=== PATIENT | female | born 2000 | race Caucasian/White ===

== ENCOUNTER 2019-01-04 07:56 | Emergency (ER) | payer OTHER ==
[2019-01-04 08:04] VITALS: BP 115/82
[2019-01-04] MEDS ORDERED: ALBUTEROL NEB 2.5 MG/3 ML INH STA (08:27)
--- NOTE | 2019-01-04 08:43 | ED Physician Documentation ---
PD HPI URI - Stated complaint Stated Complaint: SOA - Chief complaint Chief Complaint: Resp - History obtained from History obtained from: Patient, Family - History of Present Illness Timing - onset: How many days ago Timing duration: Days (3) Timing details: Gradual onset Pain level max: 0 Pain level now: 0 Associated symptoms: Nasal congestion, Rhinorrhea, Dry cough, Dyspnea. No: Fever, Chills, Sore throat, NVD Contributing factors: Sick contact Improves by: Rest Worsened by: Activity, Breathing Similar symptoms before: Has not had sx before Recently seen: Not recently seen Review of Systems Constitutional: denies: Fever, Chills Respiratory: reports: Dyspnea, Cough, Wheezing GI: denies: Nausea, Vomiting, Diarrhea Skin: denies: Rash Musculoskeletal: denies: Neck pain, Back pain Neurologic: denies: Headache PD PAST MEDICAL HISTORY - Past Medical History Past Medical History: Yes Psych: Bipolar disorder - Past Surgical History Past Surgical History: No - Present Medications Home Medications: Ambulatory Orders Medication Instructions Recorded Confirmed Albuterol Sulf [Ventolin Hfa 1 - 2 puffs INH Q4HR PRN #1 inhaler 01/04/19 Inhaler] Benzonatate [Tessalon Perle] 100 - 200 mg PO TID PRN #30 capsule 01/04/19 Methylphenidate HCl [Concerta] 27 mg PO 01/04/19 Venlafaxine ER [Effexor ER] 150 mg PO DAILY 01/04/19 01/04/19 - Allergies Allergies/Adverse Reactions: Allergies Allergy/AdvReac Type Severity Reaction Status Date / Time No Known Drug Allergies Allergy Verified 01/04/19 08:04 - Social History Does the pt smoke?: No Smoking Status: Never smoker Does the pt drink ETOH?: Yes Does the pt have substance abuse?: Yes Substance Use and Type: Marijuana - Immunizations Immunizations are current?: Yes PD ED PE NORMAL - Vitals Vital signs reviewed: Yes - General General: Alert and oriented X 3, No acute distress, Well developed/nourished - HEENT HEENT: PERRL, Ears normal, Moist mucous membranes, Pharynx benign - Neck Neck: Supple, no meningeal sign - Cardiac Cardiac: RRR - Respiratory Respiratory: No respiratory distress, Other (Diminished breath sounds and wheezing bilaterally) - Abdomen Abdomen: Soft, Non tender, Non distended - Derm Derm: Warm and dry, No rash - Neuro Neuro: Alert and oriented X 3 - Psych Psych: Normal mood, Normal affect Results - Vitals Vitals: Vital Signs - 24 hr 01/04/19 08:01 Temperature 36.6 C Heart Rate 102 H Respiratory 20 Rate Blood Pressure 115/82 H O2 Saturation 99 Oxygen O2 Source Room air PD MEDICAL DECISION MAKING - ED course Complexity details: re-evaluated patient, considered differential, d/w patient ED course: 18-year-old female with a viral upper respiratory infection complicated by wheezing. Given albuterol treatments here. Feels better. She does smoke cigarettes and marijuana. Will prescribe an inhaler for home and follow-up with her doctor. No evidence of pneumonia. No hypoxia. No respiratory distress. Patient counseled regarding signs and symptoms for which I believe and urgent re-evaluation would be necessary. Patient with good understanding of and agreement to plan and is comfortable going home at this time This document was made in part using voice recognition software. While efforts are made to proofread this document, sound alike and grammatical errors may occur. Departure - Departure Disposition: 01 Home, Self Care Clinical Impression: Viral upper respiratory infection Condition: Good Instructions: ED URI Viral W Wheezing Follow-Up: Your,doctor in 1 week [Other] Prescriptions: Albuterol Sulf [Ventolin Hfa Inhaler] 1 - 2 puffs INH Q4HR PRN #1 inhaler PRN Reason: Shortness Of Air/Wheezing Benzonatate [Tessalon Perle] 100 - 200 mg PO TID PRN #30 capsule PRN Reason: Cough Comments: Use the medications as prescribed. Return if you worsen. Follow-up with your doctor for further care.
== END 2019-01-04 09:00 | disposition home or self-care (01) ==
LOC: ED 07:56
DX: J06.9 Acute upper respiratory infection, unspecified (principal); F17.210 Nicotine dependence, cigarettes, uncomplicated; F12.10 Cannabis abuse, uncomplicated
CPT/HCPCS: 94640; 94664; 99283

== ENCOUNTER 2019-06-29 10:36 | Emergency (ER) | payer OTHER ==
[2019-06-29 10:49] VITALS: BP 123/66
--- NOTE | 2019-06-29 12:09 | ED Physician Documentation ---
PD HPI OPHTHO - Stated complaint Stated Complaint: RT EYE PX - Chief complaint Chief Complaint: Heent - History obtained from History obtained from: Patient (Starting last night she has had an itchy sensation with watery and sometimes greenish discharge from the right eye. No foreign body sensation. She does not wear contacts. Vision is unaffected.) Review of Systems Constitutional: reports: Reviewed and negative Nose: reports: Reviewed and negative Throat: reports: Reviewed and negative Cardiac: reports: Reviewed and negative PD PAST MEDICAL HISTORY - Past Medical History Psych: Bipolar disorder - Past Surgical History Past Surgical History: No - Present Medications Home Medications: Ambulatory Orders Medication Instructions Recorded Confirmed Albuterol Sulf [Ventolin Hfa 1 - 2 puffs INH Q4HR PRN #1 inhaler 01/04/19 Inhaler] Benzonatate [Tessalon Perle] 100 - 200 mg PO TID PRN #30 capsule 01/04/19 Methylphenidate HCl [Concerta] 27 mg PO 01/04/19 Venlafaxine ER [Effexor ER] 150 mg PO DAILY 01/04/19 01/04/19 Erythromycin Base [Erythromycin 1 appful OP 5XD 7 Days #1 oint...g. 06/29/19 Ophthalmic Ointment] - Allergies Allergies/Adverse Reactions: Allergies Allergy/AdvReac Type Severity Reaction Status Date / Time No Known Drug Allergies Allergy Verified 06/29/19 10:46 - Social History Does the pt smoke?: No Smoking Status: Never smoker Does the pt drink ETOH?: Yes Does the pt have substance abuse?: Yes - Immunizations Immunizations are current?: Yes PD ED PE NORMAL - Vitals Vital signs reviewed: Yes - General General: Alert and oriented X 3, No acute distress - HEENT HEENT: PERRL (Right eye with kind of a classic nonspecific conjunctivitis sparing the limbus. Soft lobes. No fluorescein uptake.) - Neuro Neuro: Alert and oriented X 3, Normal speech Results - Vitals Vitals: Vital Signs - 24 hr 06/29/19 10:47 Temperature 36.8 C Heart Rate 87 Respiratory 18 Rate Blood Pressure 123/66 O2 Saturation 97 Oxygen O2 Source Room air Departure - Departure Disposition: 01 Home, Self Care Clinical Impression: Acute conjunctivitis, right eye Qualifiers: Acute conjunctivitis type: unspecified Qualified Code(s): H10.31 - Unspecified acute conjunctivitis, right eye Condition: Good Record reviewed to determine appropriate education?: Yes Instructions: ED Conjunctivitis Nonspecific Follow-Up: Viral Whittaker MD [Provider Admit Priv/Credential] - (if not better in 3-5 days) Prescriptions: Erythromycin Base [Erythromycin Ophthalmic Ointment] 1 appful OP 5XD 7 Days #1 oint...g.
== END 2019-06-29 12:16 | disposition home or self-care (01) ==
LOC: ED 10:36
DX: H10.31 Unspecified acute conjunctivitis, right eye (principal)
CPT/HCPCS: 99282; 99283

== ENCOUNTER 2021-06-08 15:36 | Emergency (ER) | payer BC ==
[2021-06-08 15:44] VITALS: BP 131/73
[2021-06-08] MEDS ORDERED: BACITRACIN ZINC OINT 1 PACKET TOP STA (17:08)
[2021-06-08] MEDS ORDERED: TETANUS/DIPHTHERIA/PERTUSSIS 0.5 ML SYRINGE IM ONE (17:08)
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
== END 2021-06-08 17:23 | disposition home or self-care (01) ==
LOC: ED 15:36
DX: T65.891A Toxic effect of other specified substances, accidental (unintentional), initial encounter (principal); T24.512A Corrosion of first degree of left thigh, initial encounter; T24.511A Corrosion of first degree of right thigh, initial encounter; Z23 Encounter for immunization
CPT/HCPCS: 90471; 90715; 99283; 99284; A9270

== ENCOUNTER 2021-10-15 06:02 | Outpatient (CLI) | payer BC | END 2021-10-15 06:03 | disposition critical access hospital (66) | LOC: EMS 06:02 | DX: T45.0X2A Poisoning by antiallergic and antiemetic drugs, intentional self-harm, initial encounter (principal) | CPT/HCPCS: A0425; A0427 ==

== ENCOUNTER 2021-10-15 06:20 | Observation (INO) | payer BC ==
--- NOTE | 2021-10-15 07:13 | ED Physician Documentation ---
PD HPI OVERDOSE - Stated complaint Stated Complaint: OD/SI - Chief complaint Chief Complaint: MHE - History obtained from History obtained from: Patient, EMS - History of Present Illness Timing - onset: How many hours ago (1), Today Subtance(s) ingested: Single (benadryl 50 mg capsules - she and boyfriend were in argument and he said that he 'wished that she were '. Pt upset and took most of bottle of Benadryl. Had not been considering suicide prior to that time. SHe regretted it then and tried to vomit. She told her boyfriend who called EMS.), EtOH (some alcohol last night). No: ASA, Tylenol Associated symptoms: Other (starting to feel sleepy and lightheaded, dry mouth, some blurred vision on ED arrival and my exam.). No: Chest pain, NVD Contributing factors: Depresssed, Suicidal (impulsive OD at the time, without prior contemplation of suicide recently.). No: Substance abuse Similar symptoms before: Has not had sx before Recently seen: Not recently seen Review of Systems Constitutional: denies: Fever Eyes: reports: Decreased vision. denies: Loss of vision Nose: denies: Rhinorrhea / runny nose, Congestion Throat: denies: Sore throat Cardiac: denies: Chest pain / pressure Respiratory: denies: Dyspnea, Cough GI: denies: Abdominal Pain, Nausea, Vomiting, Diarrhea : denies: Dysuria, Missed period Skin: denies: Abrasion (s), Laceration (s) Neurologic: denies: Focal weakness, Near syncope, Headache, Head injury Psychiatric: reports: Depressed, Anxiety. denies: Insomnia PD PAST MEDICAL HISTORY - Past Medical History Cardiovascular: None Respiratory: None Neuro: None Endocrine/Autoimmune: None GI: None NURSE FIRST AID: None : None HEENT: None Psych: Depression, Anxiety, Bipolar disorder Musculoskeletal: None, Scoliosis Derm: None - Past Surgical History Past Surgical History: No - Present Medications Home Medications: Ambulatory Orders Medication Instructions Recorded Confirmed Methylphenidate HCl [Ritalin LA] 64 mg PO 10/15/21 clonazePAM [Clonazepam] 0.5 mg PO 10/15/21 - Allergies Allergies/Adverse Reactions: Allergies Allergy/AdvReac Type Severity Reaction Status Date / Time No Known Drug Allergies Allergy Verified 06/08/21 15:41 - Social History Does the pt smoke?: No Smoking Status: Never smoker Does the pt drink ETOH?: Yes Does the pt have substance abuse?: No - Immunizations Immunizations are current?: Yes - POLST Patient has POLST: No PD ED PE NORMAL - Vitals Vital signs reviewed: Yes - General General: Alert and oriented X 3 (slightly sleepy on my initial exam, with normal HR, but that started increasing soon after. ), Well developed/nourished, Other - HEENT HEENT: Atraumatic, PERRL (pupils dilated), EOMI, Pharynx benign. No: Moist mucous membranes (somewhat dry mucosa.) - Neck Neck: Supple, no meningeal sign, No adenopathy - Cardiac Cardiac: RRR, No murmur - Respiratory Respiratory: Clear bilaterally - Abdomen Abdomen: Normal bowel sounds, Soft, Non tender, Non distended - Derm Derm: Normal color, Warm and dry - Neuro Neuro: Alert and oriented X 3, dredge master 2-12 intact, No motor deficit, No sensory deficit, Normal speech Eye Opening: Spontaneous Motor: Obeys Commands Verbal: Oriented GCS Score: 15 - Psych Psych: Normal mood, Normal affect Results - Vitals Vitals: Vital Signs - 24 hr 10/15/21 10/15/21 10/15/21 06:24 06:53 08:40 Temperature 36.3 C L Heart Rate 68 94 106 H Respiratory 20 16 16 Rate Blood Pressure 144/89 H 123/91 H O2 Saturation 98 98 Oxygen O2 Source Room air - EKG (time done) 05:24 Rate: Rate (enter#) (68) Rhythm: NSR [place]: Normal Intervals: Normal IA QRS: Normal Ischemia: Normal ST segments. No: ST elevation c/w ischemia, ST depression - Labs Labs: Laboratory Tests 10/15/21 10/15/21 10/15/21 06:40 07:22 07:22 WBC 8.3 RBC 4.25 Hgb 11.7 L Hct 36.1 L MCV 84.9 MCH 27.5 MCHC 32.4 RDW 16.7 H Plt Count 399 MPV 10.3 Neut # (Auto) 4.8 Lymph # (Auto) 2.7 [place] # (Auto) 0.7 Eos # (Auto) 0.1 Baso # (Auto) 0.0 Absolute Nucleated RBC 0.00 Nucleated RBC % 0.0 Sodium 139 Potassium 3.3 L Chloride 105 Carbon Dioxide 24 Anion Gap 10.0 BUN 8 Creatinine 0.7 Estimated GFR (MDRD) 104 Glucose 66 L Calcium 9.0 Total Bilirubin 0.4 AST 27 ALT 38 Alkaline Phosphatase 77 Total Protein 7.5 Albumin 4.3 Globulin 3.2 Albumin/Globulin Ratio 1.3 Lipase 25 TSH Urine Color YELLOW Urine Clarity CLEAR Urine pH 6.0 Ur Specific Conrad >=1.030 H Urine Protein NEGATIVE Urine Glucose (UA) NEGATIVE Urine Ketones TRACE Urine Occult Blood NEGATIVE Urine Nitrite NEGATIVE Urine Bilirubin NEGATIVE Urine Urobilinogen 0.2 (NORMAL) Ur Leukocyte Esterase NEGATIVE Ur Microscopic Review NOT INDICATED Urine Culture Comments NOT INDICATED Urine HCG, Qual NEGATIVE Salicylates < 6.0 Urine Opiates Screen NEGATIVE Ur Oxycodone Screen NEGATIVE Urine Methadone Screen NEGATIVE Ur Propoxyphene Screen NEGATIVE Acetaminophen < 10 L Ur Barbiturates Screen NEGATIVE Ur Tricyclics Screen NEGATIVE Ur Phencyclidine Scrn NEGATIVE Ur Amphetamine Screen NEGATIVE U Methamphetamines Scrn NEGATIVE U Benzodiazepines Scrn NEGATIVE Urine Cocaine Screen NEGATIVE U Cannabinoids Screen NEGATIVE Ethyl Alcohol < 5.0 10/15/21 07:22 WBC RBC Hgb Hct MCV MCH MCHC RDW Plt Count MPV Neut # (Auto) Lymph # (Auto) [place] # (Auto) Eos # (Auto) Baso # (Auto) Absolute Nucleated RBC Nucleated RBC % Sodium Potassium Chloride Carbon Dioxide Anion Gap BUN Creatinine Estimated GFR (MDRD) Glucose Calcium Total Bilirubin AST ALT Alkaline Phosphatase Total Protein Albumin Globulin Albumin/Globulin Ratio Lipase TSH 2.22 Urine Color Urine Clarity Urine pH Ur Specific Conrad Urine Protein Urine Glucose (UA) Urine Ketones Urine Occult Blood Urine Nitrite Urine Bilirubin Urine Urobilinogen Ur Leukocyte Esterase Ur Microscopic Review Urine Culture Comments Urine HCG, Qual Salicylates Urine Opiates Screen Ur Oxycodone Screen Urine Methadone Screen Ur Propoxyphene Screen Acetaminophen Ur Barbiturates Screen Ur Tricyclics Screen Ur Phencyclidine Scrn Ur Amphetamine Screen U Methamphetamines Scrn U Benzodiazepines Scrn Urine Cocaine Screen U Cannabinoids Screen Ethyl Alcohol PD MEDICAL DECISION MAKING - ED course Complexity details: re-evaluated patient (patient with worsening confusion and some visual blurring, tachycardia. She was able to take half of the charcoal PO, then seemed uninterested and I did not want to force more as she was getting mildly sedated. Maintaining airway. Tachycardic but good BP.), considered differential (The patient had ingestion of reportedly to 60 tablets but certainly a very large number at 530 this morning. She is getting more somnolent fidgety and tachycardic here in the ER. Anticipate likely 12 to 24 hours for good clearance of symptoms. At risk for altered mentation, BP changes, ECG. ), d/w patient, d/w financial operations consultant (hospitalist), other (WIth the onset of symptoms about 1 1/2 hours after ingestion, and developing, it is most reasonable to assume she will be at risk of problems for at least 6-12 hours and unable to assess psychologically at least that, so OBS makes sense.) Departure - Departure Disposition: ED Place in Observation Clinical Impression: Stress response Intentional diphenhydramine overdose Qualifiers: Encounter type: initial encounter Qualified Code(s): T45.0X2A - Poisoning by antiallergic and antiemetic drugs, intentional self-harm, initial encounter Anticholinergic drug overdose Qualifiers: Encounter type: initial encounter Injury intent: intentional self-harm Qualified Code(s): T44.3X2A - Poisoning by other parasympatholytics [anticholinergics and antimuscarinics] and spasmolytics, intentional self-harm, initial encounter Condition: Stable Discharge Date/Time: 10/15/21 10:46
[2021-10-15] MEDS ORDERED: CHARCOAL/SORBITOL 50 GM/240 ML PO STA (07:18)
[2021-10-15] MEDS ORDERED: SODIUM CHLORIDE 0.9% 1,000 ML IV STA (07:22)
[2021-10-15 07:30] LABS: MUDS CUTOFF CONCENTRATIONS CUTOFF CONC BELOW:
[2021-10-15 07:32] LABS: BASOPHILS % (AUTO) 0.5 %; EOSINOPHILS # (AUTO) 0.1 10^3/uL (0.0-0.7); EOSINOPHILS % (AUTO) 1.4 %; HCT - HEMATOCRIT 36.1 % (37.0-47.0); HGB - HEMOGLOBIN 11.7 g/dL (12.0-16.0); LYMPHOCYTES # (AUTO) 2.7 10^3/uL (1.5-3.5); LYMPHOCYTES % (AUTO) 32.3 %; MEAN CORPUSCULAR HEMOGLOBIN 27.5 pg (27.0-31.0); MEAN CORPUSCULAR HGB CONC 32.4 g/dL (32.0-36.0); MEAN CORPUSCULAR VOLUME 84.9 fL (81.0-99.0); MEAN PLATELET VOLUME 10.3 fL (7.9-10.8); MONOCYTES # (AUTO) 0.7 10^3/uL (0.0-1.0); MONOCYTES % (AUTO) 7.9 %; NEUTROPHILS # (AUTO) 4.8 10^3/uL (1.5-6.6); NEUTROPHILS % (AUTO) 57.8 %; PLT - PLATELET COUNT 399 10^3/uL (130-450); RED BLOOD COUNT 4.25 10^6/uL (4.20-5.40); RED CELL DISTRIBUTION WIDTH 16.7 % (12.0-15.0); WHITE BLOOD COUNT 8.3 x10^3/uL (4.8-10.8)
[2021-10-15 07:39] LABS: BILIRUBIN,URINE NEGATIVE (NEGATIVE); GLUCOSE, URINE (UA) NEGATIVE (NEGATIVE); KETONES,URINE (UA) TRACE mg/dL (NEGATIVE); LEUKOCYTE ESTERASE, URINE NEGATIVE (NEGATIVE); NITRITE,URINE NEGATIVE (NEGATIVE); OCCULT BLOOD,URINE NEGATIVE (NEGATIVE); PROTEIN,URINE NEGATIVE (NEGATIVE); UROBILINOGEN,URINE 0.2 (NORMAL) E.U./dL (NORMAL)
[2021-10-15 07:41] LABS: CLARITY,URINE CLEAR (CLEAR); HCG UR QUAL NEGATIVE
[2021-10-15 07:44] LABS: ACETAMINOPHEN < 10 ug/mL (10-30); ALBUMIN 4.3 g/dL (3.2-5.5); ALBUMIN/GLOBULIN RATIO 1.3 (1.0-2.2); ALKALINE PHOSPHATASE 77 IU/L (42-121); ALT ALANINE AMINOTRANSFERASE 38 IU/L (10-60); AST ASPARTATE AMINOTRANSFERASE 27 IU/L (10-42); BILIRUBIN,TOTAL 0.4 mg/dL (0.2-1.0); BUN - BLOOD UREA NITROGEN 8 mg/dL (6-20); CARBON DIOXIDE - CO2 24 mmol/L (21-32); CHLORIDE 105 mmol/L (101-111); CREATININE 0.7 mg/dL (0.4-1.0); ETOH - ETHANOL < 5.0 mg/dL; GFR - MDRD 104 (>89); GLUCOSE 66 mg/dL (70-100); LIPASE 25 U/L (22-51); POTASSIUM 3.3 mmol/L (3.5-5.0); SALICYLATE < 6.0 mg/dL; SODIUM 139 mmol/L (135-145); TOTAL PROTEIN 7.5 g/dL (6.7-8.2)
[2021-10-15 07:49] LABS: AMPHETAMINE SCREEN,URINE NEGATIVE (NEGATIVE); BARBITURATE SCREEN,UR NEGATIVE (NEGATIVE); BENZODIAZEPINES SCREEN, URINE NEGATIVE (NEGATIVE); COCAINE SCREEN URINE NEGATIVE (NEGATIVE); METHADONE SCREEN, URINE NEGATIVE (NEGATIVE); METHAMPHETAMINES SCREEN, URINE NEGATIVE (NEGATIVE); OPIATE SCREEN, URINE NEGATIVE (NEGATIVE); OXYCODONE SCREEN, URINE NEGATIVE (NEGATIVE); PROPOXYPHENE SCREEN, URINE NEGATIVE (NEGATIVE); THC CANNABINOID SCREEN, URINE NEGATIVE (NEGATIVE); TRICYCLIC ANTIDEPRESSANT,URINE NEGATIVE (NEGATIVE)
[2021-10-15] MEDS ORDERED: LORazepam 2 MG/ML VIAL IVP STA (08:08)
[2021-10-15] MEDS ORDERED: POTASSIUM CHLOR 10 MEQ/100 ML 10 MEQ/100 ML BAG IV STA (08:52)
[2021-10-15] MEDS ORDERED: SODIUM CHLORIDE FLUSH 0.9% 10 ML SYRINGE IVP PRN (09:00)
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
[2021-10-15 10:17] LABS: B. PARAPERTUSSIS- RESP PCR PAN NOT DETECTED; B. PERTUSSIS- RESP PCR PANEL NOT DETECTED; C. PNEUMONIAE- RESP PCR PANEL NOT DETECTED; CORONAVIRUS 229E-RESP PCR NOT DETECTED; CORONAVIRUS HKU1-RESP PCR NOT DETECTED; CORONAVIRUS NL63-RESP PCR NOT DETECTED; CORONAVIRUS OC43-RESP PCR NOT DETECTED; HUMAN METAPNEUMOVIRUS NOT DETECTED; INFLUENZA A- RESP PCR PANEL NOT DETECTED; INFLUENZA B - RESP PCR PANEL NOT DETECTED; M. PNEUMONIAE- RESP PCR PANEL NOT DETECTED; PARAINFLUENZA VIRUS 1 NOT DETECTED; PARAINFLUENZA VIRUS 2 NOT DETECTED; PARAINFLUENZA VIRUS 3 NOT DETECTED; PARAINFLUENZA VIRUS 4 NOT DETECTED; RHINOVIRUS/ENTEROVIRUS NOT DETECTED; RSV- RESP PCR PANEL NOT DETECTED; SARS-CoV-2 -RESP PCR PANEL NOT DETECTED
[2021-10-15] MEDS: SODIUM CHLORIDE FLUSH 0.9% 10 ML SYRINGE IVP SCH ×2 (12:06→16:31)
[2021-10-15 12:50] LABS: CALCIUM 8.7 mg/dL (8.5-10.3); CREATININE 0.7 mg/dL (0.4-1.0); MAGNESIUM 2.1 mg/dL (1.7-2.8); PHOSPHORUS 2.4 mg/dL (2.5-4.6); POTASSIUM 3.5 mmol/L (3.5-5.0)
[2021-10-15] MEDS: SODIUM CHLORIDE 0.9% 1,000 ML IV SCH (14:37)
[2021-10-15] MEDS: NEUTRA-PHOS 250 MG TABLET PO SCH ×2 (14:37→16:29)
[2021-10-15 22:05] LABS: CALCIUM 7.9 mg/dL (8.5-10.3); CREATININE 0.7 mg/dL (0.4-1.0); MAGNESIUM 1.9 mg/dL (1.7-2.8); POTASSIUM 3.7 mmol/L (3.5-5.0)
[2021-10-15] MEDS: CALCIUM CARBONATE CHEW 500 MG TABLET PO SCH (22:28)
[2021-10-15] MEDS ORDERED: POTASSIUM CHLORIDE 20 MEQ TABLET PO ONE (23:00)
[2021-10-16] MEDS: SODIUM CHLORIDE FLUSH 0.9% 10 ML SYRINGE IVP SCH (00:08)
[2021-10-16] MEDS: SODIUM CHLORIDE 0.9% 1,000 ML IV SCH ×2 (00:08→09:56)
[2021-10-16 04:24] LABS: BASOPHILS % (AUTO) 0.5 %; EOSINOPHILS # (AUTO) 0.1 10^3/uL (0.0-0.7); EOSINOPHILS % (AUTO) 1.4 %; HGB - HEMOGLOBIN 10.1 g/dL (12.0-16.0); LYMPHOCYTES # (AUTO) 3.1 10^3/uL (1.5-3.5); LYMPHOCYTES % (AUTO) 40.1 %; MEAN CORPUSCULAR HEMOGLOBIN 27.4 pg (27.0-31.0); MEAN CORPUSCULAR HGB CONC 31.6 g/dL (32.0-36.0); MEAN CORPUSCULAR VOLUME 86.7 fL (81.0-99.0); MEAN PLATELET VOLUME 10.3 fL (7.9-10.8); MONOCYTES # (AUTO) 0.5 10^3/uL (0.0-1.0); MONOCYTES % (AUTO) 6.3 %; NEUTROPHILS % (AUTO) 51.4 %; PLT - PLATELET COUNT 323 10^3/uL (130-450); RED BLOOD COUNT 3.69 10^6/uL (4.20-5.40); RED CELL DISTRIBUTION WIDTH 17.3 % (12.0-15.0); WHITE BLOOD COUNT 7.8 x10^3/uL (4.8-10.8)
[2021-10-16 04:35] LABS: CALCIUM 8.3 mg/dL (8.5-10.3); CREATININE 0.6 mg/dL (0.4-1.0); PHOSPHORUS 3.3 mg/dL (2.5-4.6); POTASSIUM 3.9 mmol/L (3.5-5.0)
[2021-10-16 04:46] LABS: CALCIUM, IONIZED 1.17 mmol/L (1.15-1.33); VBG PH 7.395 (7.31-7.41)
[2021-10-16] MEDS ORDERED: POTASSIUM CHLORIDE 20 MEQ TABLET PO ONE (08:00)
--- NOTE | 2021-10-16 10:07 | PHARMACY PROGRESS NOTE ---
- Best Possible Medication History Admit Date and Time: 10/15/21 0900 Processed by: Pharmacy Medication History completed: Yes Secondary Source(s): Physician records, Insurance records As the person ultimately responsible for medication therapy, providers are able to order a medication from an existing home medication list in [facility] via the "Reconcile Routine" prior to Confirmation of that medication by call center support consultant. Such practice is discouraged except when the physician, in their clinical judgment, deems that a medical need exists for a medication without regard to previous use.
[2021-10-16] MEDS: CALCIUM CARBONATE CHEW 500 MG TABLET PO SCH (12:03)
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
--- NOTE | 2021-10-16 12:48 | Discharge Plan ---
Discharge Plan Problem Reviewed?: Yes Disposition: Home, Self Care Condition: Stable Diet: Regular Activity Restrictions: Activity as Tolerated Weight Bearing: Full Weight Health Concerns: You were admitted for an intentional overdose on Benadryl. You were admitted to the ICU and your vitals were monitored closely. Prior to admission you had been given activated charcoal and you had vomited before arriving in the hospital. Over the course of 24 hours your heart rate improved to normal rhythm and your electrolytes were within normal limits. He was seen by social work and after discussion, it was determined that you could go home. You were provided a list of resources available in the community to help you. You are being discharged in stable condition. You may follow-up with your primary care physician as needed. No Smoking: If you smoke, Please STOP! Call for help.
[2021-10-16 14:13] VITALS: BP 122/68
== END 2021-10-16 13:55 | disposition home or self-care (01) ==
LOC: EDUNIT# → ED 06:20 → ICU 09:00
PROVIDERS: ADMIT Internal Medicine; ATTEND Internal Medicine
DX: T45.0X2A Poisoning by antiallergic and antiemetic drugs, intentional self-harm, initial encounter (principal); Y92.9 Unspecified place or not applicable; F90.9 Attention-deficit hyperactivity disorder, unspecified type; F41.9 Anxiety disorder, unspecified; R41.0 Disorientation, unspecified; F17.290 Nicotine dependence, other tobacco product, uncomplicated; Z20.822 Contact with and (suspected) exposure to COVID-19; R00.0 Tachycardia, unspecified
CPT/HCPCS: 0202U; 36415; 80048; 80053; 80306; 80307; 80320; 80329; 81003; 81025; 82330; 83690; 83735; 84100; 84443; 85025; 87150; 93005; 96374; 99283; 99285; A9270; G0378; J2060; 81001; 87086

== ENCOUNTER 2022-07-20 19:34 | Outpatient (CLI) | payer BC ==
--- NOTE | 2022-07-21 03:06 | XRAY Report ---
PROCEDURE: Foot 3 View RT INDICATIONS: ANKLE JOINT PAIN TECHNIQUE: 3 views of the foot were acquired. COMPARISON: Concurrent study of the ankle. FINDINGS: Bones: There is a probable small avulsion fracture along the dorsal aspect of the anterior talus deshawn ng the talonavicular articulation. No suspicious bony lesions. Soft tissues: There is soft tissue swelling dorsal to the anterior talus. No tibiotalar joint effusi on. Achilles tendon appears normal. IMPRESSION: 1. Small dorsal avulsion fracture of the anterior talus. Reviewed by: Rafael Mcmillan MD on 07/21/2022 3:05 AM [facility] Approved by: Rafael Mcmillan MD on 07/21/2022 3:05 AM [facility] Station ID: [id number]
--- NOTE | 2022-07-21 03:10 | XRAY Report ---
PROCEDURE: Ankle 3 View RT INDICATIONS: ANKLE JOINT PAIN,RIGHT TECHNIQUE: 4 weightbearing views of the ankle were acquired. COMPARISON: Concurrent study of the right foot. FINDINGS: Bones: There is a small dorsal avulsion fracture of the anterior talus along the talonavicular articu lation. Ankle mortise is normally aligned. No suspicious bony lesions. Soft tissues: No tibiotalar joint effusion. There is soft tissue swelling dorsal to the anterior ta dee. Achilles tendon appears intact. IMPRESSION: 1. Small dorsal avulsion fracture of the anterior talus. Reviewed by: Rafael Mcmillan MD on 07/21/2022 3:08 AM PST Approved by: Rafael Mcmillan MD on 07/21/2022 3:08 AM PST Station ID: [id number]
== END 2022-07-20 19:35 | disposition home or self-care (01) ==
LOC: DI 19:34
PROVIDERS: ATTEND Registered Nurse
DX: S92.151A Displaced avulsion fracture (chip fracture) of right talus, initial encounter for closed fracture (principal)

== ENCOUNTER 2022-10-20 19:48 | Emergency (ER) | payer BC ==
[2022-10-20] MEDS ORDERED: ALBUTEROL 1 PUFF INH STA (20:49)
[2022-10-20] MEDS ORDERED: CHERRY SYRUP 10 ML UDC PO ONE (20:52)
[2022-10-20] MEDS ORDERED: DEXAMETHASONE 10 MG/ML VIAL PO STA (20:52)
--- NOTE | 2022-10-20 20:52 | ED Physician Documentation ---
History of Present Illness - Stated complaint Stated Complaint: COUGH - Chief complaint Chief Complaint: Resp - Additonal information Additional information: 22-year-old female presents emergency department for evaluation of several weeks of cough. She states the cough has been present now for 3 to 4 weeks. Often worse at night. She finds that with activity she is short of air and often wheezes. She reports history of asthma in her youth but has not used inhalers for quite some time. She did buy Primatene Mist inhaler [id number] at the pharmacy and finds that it is sometimes helpful. Often with coughing fits she is reporting excessive nasal congestion. Also states cough is sometimes worse at night. No recent fevers. No nausea or vomiting. No chest pain. Does have a history of SI as well as depression and takes venlafaxine. She is a heavy daily vaper. Review of Systems Constitutional: denies: Fever Nose: reports: Congestion Throat: reports: Reviewed and negative Cardiac: denies: Chest pain / pressure Respiratory: reports: Dyspnea, Cough, Wheezing. denies: Hemoptysis GI: reports: Reviewed and negative : reports: Reviewed and negative PD PAST MEDICAL HISTORY - Past Medical History Cardiovascular: None Respiratory: None Neuro: None Endocrine/Autoimmune: None GI: None MANNEQUIN COLORING ARTIST: None : None HEENT: None Psych: Depression, Anxiety, Bipolar disorder Musculoskeletal: None, Scoliosis Derm: None - Past Surgical History Past Surgical History: No - Present Medications Home Medications: Ambulatory Orders Medication Instructions Recorded Confirmed Methylphenidate HCl 36 mg PO ONCE 10/16/21 10/20/22 clonazePAM [Klonopin] 1 mg PO QPM 10/16/21 10/20/22 Albuterol Sulf [Ventolin Hfa 1 - 2 puffs INH Q4HR PRN #1 each 10/20/22 Inhaler] Fluticasone 44 Mcg [Flovent] 1 puffs INH BID #1 kit 10/20/22 Fluticasone [Flonase] 1 sprays SEDA DAILY #16 gm 10/20/22 - Allergies Allergies/Adverse Reactions: Allergies Allergy/AdvReac Type Severity Reaction Status Date / Time No Known Drug Allergies Allergy Verified 10/20/22 20:13 - Social History Does the pt smoke?: No Smoking Status: Never smoker Does the pt drink ETOH?: Yes Does the pt have substance abuse?: No - Immunizations Immunizations are current?: Yes - POLST Patient has POLST: No POLST Status: Full Code PD ED PE NORMAL - General General: Alert and oriented X 3, No acute distress, Well developed/nourished - HEENT HEENT: Atraumatic, Ears normal, Moist mucous membranes. No: Pharynx benign (Chronically enlarged tonsils. Normal-appearing posterior uvula without deviation. No exudate. Normal swallow normal phonation) - Neck Neck: Supple, no meningeal sign, No adenopathy - Cardiac Cardiac: RRR, No murmur, No gallop - Respiratory Respiratory: No respiratory distress, Clear bilaterally - Abdomen Abdomen: Normal bowel sounds, Soft - Back Back: No CVA TTP, No spinal TTP - Derm Derm: Normal color, Warm and dry, No rash - Extremities Extremities: No deformity, No tenderness to palpate, Normal ROM s pain - Neuro Neuro: Alert and oriented X 3, front desk officer 2-12 intact Eye Opening: Spontaneous Motor: Obeys Commands Verbal: Oriented GCS Score: 15 Results - Vitals Vitals: Vital Signs - 24 hr 10/20/22 20:03 Temperature 37.1 C Heart Rate 86 Respiratory 18 Rate Blood Pressure 134/67 H O2 Saturation 99 Oxygen O2 Source Room air - Rads (name of study) cxr Relevant Findings:: EMP independent interpretation of test (No acute cardiopulmonary process) PD Medical Decision Making - ED course Complexity details: reviewed results, d/w patient ED course: 22-year-old female presents emergency department for evaluation of several weeks cough. Began as what she thought was a virus but has failed to improve. Often finds that she is coughing and wheezy with exertion. Some improvement using Primatene Mist. She does have a history of asthma in adolescence. She is also a heavy daily vapor. Here in the emergency department she appears unlabored. No cough was elicited in the room. Room air saturations are 100%. Cardiopulmonary auscultation was unremarkable. A chest x-ray is interpreted by myself shows no acute cardiopulmonary findings. In discussion with the patient and in review of her symptoms I suspect that she had a viral URI that is causing mild asthma exacerbation. Given lack of fevers or focal findings on chest x-ray we will defer antibiotics as clinically she does not have a pneumonia. We discussed treatment regimen for mild uncomplicated asthma. She will be discharged with prescription for Flovent to be used twice daily as well as rescue inhaler/albuterol. She seems to have a fair amount of congestion contributing to the cough and I am making the recommendation for Flonase daily after a shower as well as the use of an allergy medicine such as Claritin. Patient is advised to follow closely with her primary care provider. The usual emergent return precautions were discussed worsening symptoms Departure - Departure Disposition: 01 Home, Self Care Clinical Impression: Asthma exacerbation, mild Cough Qualifiers: Cough type: subacute Qualified Code(s): R05.2 - Subacute cough Condition: Stable Record reviewed to determine appropriate education?: Yes Instructions: Asthma Dc Prescriptions: Albuterol Sulf [Ventolin Hfa Inhaler] 1 - 2 puffs INH Q4HR PRN #1 each PRN Reason: Shortness Of Air/Wheezing Fluticasone [Flonase] 1 sprays SEDA DAILY #16 gm Fluticasone 44 Mcg [Flovent] 1 puffs INH BID #1 kit Comments: As discussed at the bedside I suspect that the cause of your cough is a mild asthma exacerbation. I have sent a prescription for albuterol to the pharmacy. When using this always use the inhaler. I would like you to also fill the prescription for the Flovent and take this twice daily for the next several weeks. With a mild asthma exacerbation this should help reduce your daily need for a rescue inhaler like albuterol. I also suspect some of the congestion in your nose is contributing to your cough. An [id number] medication like Claritin can be helpful but using a nasal spray such as Flonase after shower each day can also help. Please discuss this ED visit with your primary care provider. Return to the ER for worsening symptoms
--- NOTE | 2022-10-20 21:14 | XRAY Report ---
PROCEDURE: Chest 1 View X-Ray INDICATIONS: cough X 1 month TECHNIQUE: One view of the chest was acquired. COMPARISON: None. FINDINGS: Surgical changes and devices: None. Lungs and pleura: No pleural effusions or pneumothorax. Lungs are clear. Mediastinum: Mediastinal contours appear normal. Heart size is normal. Bones and chest wall: No suspicious bony lesions. Overlying soft tissues appear unremarkable. IMPRESSION: Normal for age, source of persistent cough is not found. Reviewed by: Alejandro Adan MD on 10/20/2022 9:13 PM PDT Approved by: Alejandro Adan MD on 10/20/2022 9:13 PM PDT Station ID: [id number]
[2022-10-20 21:16] VITALS: BP 132/79
== END 2022-10-20 21:16 | disposition home or self-care (01) ==
LOC: ED 19:48
DX: J45.901 Unspecified asthma with (acute) exacerbation (principal); F17.290 Nicotine dependence, other tobacco product, uncomplicated
CPT/HCPCS: 94640; 94664; 99283; 99284

== ENCOUNTER 2022-11-04 03:06 | Outpatient (CLI) | payer BC | END 2022-11-04 23:59 | disposition EMS.NT | LOC: EMS 03:06 | DX: Z04.1 Encounter for examination and observation following transport accident (principal); R51.9 Headache, unspecified ==

== ENCOUNTER 2023-08-29 08:00 | Outpatient (CLI) | payer BC | END 2023-08-29 23:59 | disposition home or self-care (01) | LOC: LAB.N 08:00 | PROVIDERS: ATTEND Nurse Practitioner Psychiatric/Mental Health | DX: J02.9 Acute pharyngitis, unspecified (principal) | CPT/HCPCS: 87070; 87077 ==

== ENCOUNTER 2023-11-05 22:12 | Emergency (ER) | payer BC ==
--- NOTE | 2023-11-05 22:48 | ED Physician Documentation ---
PD HPI DYSPNEA - Stated complaint Stated Complaint: SOA/CHEST TIGHT/COUGH - Chief complaint Chief Complaint: Resp - History obtained from History obtained from: Patient - History of Present Illness Timing - onset: How many weeks ago (1) Timing - onset during: Rest Timing - duration: Weeks (1) Timing - details: Gradual onset, Still present Inciting event(s): Other (time of year) Improved by: Rest Worsened by: Exertion, Coughing, Allergens Associated symptoms: Cough, Wheezing, Chest pain / discomfort Similar symptoms before: Diagnosis (asthma) Recently seen: Not recently seen - Additional information Additional information: Tiny mcclellan is a 23-year-old female with a history of ADHD who complains of chest tightness and shortness of breath associated with her asthma. She does not have an inhaler to use. Last year when this occurred to her she came to the emergency department she got a treatment and 10 mg of dexamethasone and when she went to the pharmacy she was unable to afford the 3 inhalers were prescribed for her. She did not require their use felt well following that. She has had several episodes since then where she felt that she could use an inhaler but these all passed. She does have allergy to cat and she will use an antihistamine when she is at her boyfriend's house. Review of Systems Constitutional: denies: Fever Eyes: denies: Decreased vision Ears: denies: Ear pain Nose: reports: Rhinorrhea / runny nose, Congestion Throat: denies: Sore throat Cardiac: reports: Chest pain / pressure. 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 : None HEENT: None Psych: Depression, Anxiety, Bipolar disorder, ADD/ADHD Musculoskeletal: None, Scoliosis Derm: None - Past Surgical History Past Surgical History: No - Present Medications Home Medications: Ambulatory Orders Medication Instructions Recorded Confirmed Methylphenidate HCl 36 mg PO ONCE 10/16/21 10/20/22 clonazePAM [Klonopin] 1 mg PO QPM 10/16/21 10/20/22 Albuterol Sulf [Ventolin Hfa 1 - 2 puffs INH Q4HR PRN #1 each 10/20/22 Inhaler] Fluticasone 44 Mcg [Flovent] 1 puffs INH BID #1 kit 10/20/22 Fluticasone [Flonase] 1 sprays SEDA DAILY #16 gm 10/20/22 Albuterol Sulf [Ventolin Hfa 1 - 2 puffs INH Q4HR PRN #1 each 11/05/23 Inhaler] - Allergies Allergies/Adverse Reactions: Allergies Allergy/AdvReac Type Severity Reaction Status Date / Time No Known Drug Allergies Allergy Verified 11/05/23 22:19 - Social History Does the pt smoke?: No Smoking Status: Never smoker Does the pt drink ETOH?: Yes Does the pt have substance abuse?: No - Immunizations Immunizations are current?: Yes - POLST Patient has POLST: No POLST Status: Full Code PD ED PE NORMAL - Vitals Vital signs reviewed: Yes (normal ) - General General: Alert and oriented X 3, No acute distress, Well developed/nourished - HEENT HEENT: Atraumatic, PERRL, EOMI, Ears normal, Moist mucous membranes, Pharynx benign, Dentition benign - Neck Neck: Supple, no meningeal sign, No bony TTP - Cardiac Cardiac: RRR, No murmur - Respiratory Respiratory: No respiratory distress, Other (diminished but clear lungs) - Abdomen Abdomen: Soft, Non tender - Back Back: No CVA TTP, No spinal TTP - Derm Derm: Normal color, Warm and dry, No rash - Extremities Extremities: No deformity, No edema - Neuro Neuro: Alert and oriented X 3, iuss analyst 2-12 intact, No motor deficit, No sensory deficit, Normal speech Eye Opening: Spontaneous Motor: Obeys Commands Verbal: Oriented GCS Score: 15 - Psych Psych: Normal mood, Normal affect Results - Vitals Vitals: Vital Signs - 24 hr 11/05/23 22:19 Temperature 36.8 C Heart Rate 100 Respiratory 16 Rate Blood Pressure 126/73 O2 Saturation 100 Oxygen O2 Source Room air PD Medical Decision Making - ED course Complexity details: reviewed results, re-evaluated patient, considered differential, d/w patient ED course: 23-year-old female with ADHD who has an exacerbation of her asthma it does appear this is seasonal she has been into the emergency department the past 2 years in a row in October. She has a prior history of rapid resolution of her symptoms with a single dose of dexamethasone last year. She tells me she was worse last year than this year. I will prescribe her an albuterol inhaler and I do not believe a course of steroids is required. I have encouraged her to take an antihistamine on a regular basis for the next 2 weeks. Departure - Departure Disposition: Home, Self Care Clinical Impression: Asthma Qualifiers: Asthma severity: mild Asthma persistence: intermittent Asthma complication type: with acute exacerbation Qualified Code(s): J45.21 - Mild intermittent asthma with (acute) exacerbation Condition: Stable Instructions: ED Reactive Airway Disease Follow-Up: Taylor Beckett, PMHNP [Credentialed Staff Provider] - Prescriptions: Albuterol Sulf [Ventolin Hfa Inhaler] 1 - 2 puffs INH Q4HR PRN #1 each PRN Reason: Shortness Of Air/Wheezing Comments: Tiny, today it looks like you have an exacerbation of asthma and by history this looks like it is related to seasonal allergy. My recommendation is to use a nonsedating antihistamine like Patti or Zyrtec on a regular basis for the next several weeks. I have E scribed an albuterol inhaler to the [facility] in [place], which you should have for the symptoms. Use it as needed. Today we gave you a dose of dexamethasone which should ameliorate your symptoms over the next 2 days. If you have a return of your symptoms later in the week a trip into see your primary care doctor is indicated for a short course of prednisone. Apparently this was not necessary last year. Forms: PCP List
[2023-11-05] MEDS: CHERRY SYRUP 10 ML UDC PO ONE (22:55)
[2023-11-05] MEDS: DEXAMETHASONE 10 MG/ML VIAL PO STA (22:55)
[2023-11-05] MEDS: IPRATROPIUM/ALBUTEROL 3 ML NEB INH STA (22:58)
[2023-11-05 23:17] VITALS: BP 122/74; O2SAT 98
== END 2023-11-05 23:16 | disposition home or self-care (01) ==
LOC: ED 22:12
DX: J45.21 Mild intermittent asthma with (acute) exacerbation (principal); Z79.899 Other long term (current) drug therapy
CPT/HCPCS: 94640; 99283; 99284; A9270